=== PATIENT | female | born 1985 | race African-American/Black ===

== ENCOUNTER 2024-11-21 05:37 | Emergency (ER) | payer BC, SELFPAY ==
[2024-11-21 05:42] VITALS: BP 126/90
[2024-11-21 06:03] VITALS: BP 113/77
[2024-11-21 06:24] LABS: HCG, Serum Qualitative Screen Positive
[2024-11-21 06:28] LABS: ALT (SGPT) < 10 U/L (0-35); AST (SGOT) 20 U/L (14-36); Albumin 3.3 g/dl (3.5-5.0); Alkaline Phosphatase 63 U/L (38-126); Blood Urea Nitrogen 16 mg/dl (7-17); Calcium 8.6 mg/dl (8.4-10.2); Carbon Dioxide 20 mmol/L (22-30); Chloride 108 mmol/L (98-107); Glucose 93 mg/dl (70-99); Potassium 4.1 mmol/L (3.5-5.1); Sodium 134 mmol/L (135-145); Total Bilirubin 0.4 mg/dl (0.2-1.3); Total Protein 6.5 g/dl (6.3-8.2); eGFR > 60.00
[2024-11-21 06:37] LABS: % Basophils 0.2 % (0-2); % Eosinophils 0.4 % (0-6); % Immature Granulocytes 0.5 % (0-0.5); % Lymphocytes 10.9 % (20.5-51.1); % Monocytes 5.7 % (1.7-9.3); % Neutrophils 82.3 % (42.2-75.2); Absolute Eosinophils 0.1 10^3/uL (0-0.7); Absolute Immature Granulocytes 0.1 10^3/uL (0-0.05); Absolute Lymphocytes 1.6 10^3/uL (1.2-3.4); Absolute Monocytes 0.8 10^3/uL (0.1-0.6); Absolute Neutrophils 12.1 10^3/uL (1.4-6.5); Hematocrit 31.8 % (37.0-47.0); Hemoglobin 10.9 g/dL (12.0-16.0); Mean Corp Hgb Conc. 34.3 g/dL (33.0-37.0); Mean Corpuscular Volume 84.6 fL (81.0-99.0); Mean Platelet Volume 10.5 fL (7.4-10.4); Nucleated Red Blood Cells % 0 %; Platelet Count 376 10^3/uL (130-400); Red Blood Cell Count 3.76 10^6/uL (4.20-5.40); Red Cell Dist. Width 12.3 % (11.5-14.5); White Blood Cell Count 14.7 10^3/uL (4.8-10.8)
--- NOTE | 2024-11-21 06:51 | ED.GENMED ---
History of Present Illness
General
Chief Complaint: Abdominal Pain
Source: patient and spouse
Time Seen by Provider: 11/21/24 06:22
History of Present Illness
History of Present Illness:
39-year-old female who presents with left lower quadrant abdominal pain. The patient states that she is undergoing fertility treatment and recently had 2 rounds of Follistim and subsequent embryo transfer. Patient has an upcoming appointment this
week. Patient admits that she has had several egg retrieval's in the past. Patient reports that around 3:30 AM is when the pain started. Is sharp in the left side of her abdomen. Radiates toward the right. She admits that on recent ultrasounds
her ovaries were very enlarged. No vaginal bleeding. No vomiting. Reportedly was given 15 mg of Toradol IV by EMS. states she has been eating a lot and he was thinking that she was
Past History
Past History
ED Past Surgical History: Other (Egg retrieval x 4, gastric sleeve)
Phy Exam
Physical Exam
Physical Exam:
CONSTITUTIONAL Patient alert and oriented to person, place and time. Well-appearing. Vital signs reviewed.
HEAD atraumatic, normocephalic.
EYES eyelids normal to inspection, Extraocular muscles intact, Conjunctiva normal, Sclera normal.
NECK normal range of motion, Trachea midline, no jugular venous distention.
RESPIRATORY CHEST No respiratory distress noted, Chest expansion equal,
ABDOMEN moderate left-sided abdominal tenderness, mild suprapubic tenderness, mild right lower quadrant tender, no rebound, Bowel sounds normal. No distention.
BACK normal inspection, no obvious deformities
UPPER EXTREMITY range of motion normal, Motor strength normal, no cyanosis, no edema.
LOWER EXTREMITY range of motion normal, Motor strength normal, no cyanosis, no edema.
NEURO Speech normal, No focal motor deficits, Dane coma scale 15, Memory normal, Cranial Nerves intact to screening exam.
SKIN skin warm, dry, and normal in color.
Course
Orders/Labs/Results
Orders:
Orders
11/21/24 06:06
Test Result ONCE
11/21/24 06:10
Beta HCG Quantitative Urgent
Comment: ADD ON
Beta Hcg Serum Qualitative Screen [HCG, Serum Qualitative Screen] Urgent
Complete Blood Count/With Diff Urgent
Comprehensive Metabolic Panel Urgent
11/21/24 06:11
Type And Crossmatch [Type+Screen] Urgent
11/21/24 06:31
Add On- LAB Urgent
Tests Added?: HCG quantatative
11/21/24 06:36
Transvaginal US [US Pelvis W Transvag Combined] Urgent
Comment:
Reason For Exam: LLQ pain, pos , recent fertility Rx
11/21/24 08:23
Fentanyl Citrate/Pf [Sublimaze] 50 mcg IV NOW STA
11/21/24 08:30
FentaNYL 1,000 MCG/100 ML [Sublimaze] 1,000 mcg in 100 ml IV PER PROTOCOL
Indication:: Deep Sedation
Begin Infusion:: Now
Goal:: RASS </= -3, BIS 40-60, ventilator synchrony
Maximum dose in mcg/hr:: 300
Continue currently infusing dose and titrate:: Yes
Titration Instructions:: Titrate Q30 min until ventilator synchrony, RASS or BIS goal is met.
Titration Instructions:: If RASS >/= -2 or BIS > 60 or ventilator dyssynchrony:
Titration Instructions:: administer bolus dose and increase infusion by 25 mcg/hr.
Titration Instructions:: Administer analgesia bolus dose(s) & titrate analgesia prior to
Titration Instructions:: adjusting sedation.
Over-sedation Instructions:: if BIS < 40 and pt is synchronous with ventilator, decrease infusion by
Over-sedation Instructions:: 25 mcg/hr every 2 hours until BIS = 40-60.
Over-sedation Instructions:: Do not wean infusion to off if patient is receiving a continuous NMBA or
Over-sedation Instructions:: has received a bolus dose of NMBA within the past 3 hours.
Notify provider:: immediately if pt exhibits signs/symptoms of chest wall rigidity,
Notify provider:: hemodynamic instability, or agitation/pain despite maximum dosing.
Additional Instructions:: Patient MUST be mechanically ventilated.
11/21/24 10:13
Urinalysis Reflex To Culture Urgent
11/21/24 10:45
0.9% Sodium Chloride 500 ml [Nss] 500 ml IV BOLUS
Abnormal Lab Results
11/21/24
06:10
WBC 14.7 H 10^3/uL
(4.8-10.8)
RBC 3.76 L 10^6/uL
(4.20-5.40)
Hgb 10.9 L g/dL
(12.0-16.0)
Hct 31.8 L %
(37.0-47.0)
MPV 10.5 H fL
(7.4-10.4)
Abs Immat Gran (auto) 0.1 H 10^3/uL
(0-0.05)
Absolute Neuts (auto) 12.1 H 10^3/uL
(1.4-6.5)
Absolute Monos (auto) 0.8 H 10^3/uL
(0.1-0.6)
Neutrophils % 82.3 H %
(42.2-75.2)
Lymphocytes % 10.9 L %
(20.5-51.1)
Sodium 134 L mmol/L
(135-145)
Chloride 108 H mmol/L
(98-107)
Carbon Dioxide 20 L mmol/L
(22-30)
Albumin 3.3 L g/dl
(3.5-5.0)
11/21/24 06:10
11/21/24 06:10
Vital Signs
Initial and Last Documented VS:
Initial Vital Signs
Temp Pulse Resp BP Pulse Ox
98.2 F 100 24 126/90 100
11/21/24 05:42 11/21/24 05:42 11/21/24 05:42 11/21/24 05:42 11/21/24 05:42
Last Documented Vital Signs
Temp Pulse Resp BP Pulse Ox
98.2 F 91 18 121/96 100
11/21/24 05:42 11/21/24 09:15 11/21/24 09:15 11/21/24 09:06 11/21/24 09:15
MDM/Problems Addressed
Differential Diagnosis Includes:
Ovarian torsion, ovarian cyst, ectopic , ovarian hyperstimulation/engorgement, diverticulitis, colitis, constipation
*Radiology
Radiology exam reviewed: preliminary read by ED provider
*Pulse Oximetry
Patient hypoxic: no
*Critical Care Note
Total Time (30-74mins, 75-104mins- exclusive of procedures): Not Applicable
Data Reviewed
Source: patient and spouse
Patient Management
Escalation/DeEscalation of care consider admission/obs:
Patient appears well. She actually feels better after urinating. She does have some residual and I wonder if her large ovaries are pressing on her bladder. Patient states that she has an appointment tomorrow with her fertility clinic. Fertility
clinic actually called her while here and said that this was expected and they will see her tomorrow. I think that is reasonable. Low suspicion currently for ectopic but will need to follow her beta-hCG. Patient was given her hCG results. She is
aware that needs to be repeated
ED Attending Note
-
Portions of this chart may have been created with voice recognition software.� Occasional wrong word or��sound alike� substitutions may have occurred due to the inherent limitations of voice recognition software.
Discharge Plan
Departure
Patient Disposition: Home (Routine Discharge)
Date of Disposition: 11/21/24
Time of Disposition: 10:44
Patient with high blood pressure during this ER visit?: No
Discharge Problem:
Abdominal pain
Instructions: Abdominal Pain
Referrals:
PRIVATE,PHYSICIAN [Family Provider] -
Activity Restrictions/Additional Instructions:
Please see your doctor tomorrow for follow-up as planned. Return immediately for intractable vomiting, intractable pain, fevers, bleeding or any other concerns. Drink plenty of fluids. Use Tylenol as needed.
Interventions
Interventions:
*Risk Screen - Suicide Last Done: 11/21/24 05:42
*Neglect/Abuse Screening Last Done: 11/21/24 05:42
*ED COVID-19 Vaccine History Last Done: 11/21/24 06:36
AS-Qhpovj-Vlfufglakq Assessment Last Done: 11/21/24 06:35
Discharge Date and Time
Print Language: DUTCH
[2024-11-21 07:00] VITALS: BP 129/82
[2024-11-21 07:52] LABS: Beta HCG Quantitative 396.92 mIU/ml
[2024-11-21 09:06] VITALS: BP 121/96
[2024-11-21 10:49] VITALS: BP 116/90
== END 2024-11-21 11:00 | disposition home or self-care (01) ==
LOC: EMR 05:37
PROVIDERS: Student in an Organized Health Care Education/Training Program; EMERGENCY PHYSICIAN Emergency Medicine
DX: R10.32 Left lower quadrant pain (principal)
CPT/HCPCS: 99284; 76830; 76856; 80053; 84702; 84703; 85025; 86850; 86900; 86901